=== PATIENT | female | born 1975 | race Caucasian/White ===

== ENCOUNTER 2017-03-03 18:42 | Emergency (ER) | payer SELFPAY ==
[2017-03-03 19:54] VITALS: BP 122/76
== END 2017-03-03 19:55 | disposition home or self-care (01) ==
LOC: ED 18:42
DX: T78.3XXA Angioneurotic edema, initial encounter (principal); F41.0 Panic disorder [episodic paroxysmal anxiety]
CPT/HCPCS: J1100; Q0163